=== PATIENT | female | born 1965 ===

== ENCOUNTER 2024-06-01 08:04 | Day surgery (SDC) | payer OTHER, BC ==
[2024-06-01] VITALS (8 sets, daily range): BP systolic 106–129; BP diastolic 63–75; PULSE 63–73; TEMP 98.3
[~2024-06-01] VITALS: Ht 165.2 cm; Wt 124.8 kg
[2024-06-01] MEDS ORDERED: methylPREDNISolone Sod Succ 125 MG/2 ML VIAL IV SCH (08:30)
[2024-06-01] MEDS ORDERED: 1/2 NS 1,000 ML IV SCH (08:30)
[2024-06-01] MEDS ORDERED: diphenhydrAMINE 50 MG/ML 1 ML VIAL IV SCH (08:30)
[2024-06-01] MEDS ORDERED: BENICAR40 MG PO (08:47)
[2024-06-01] MEDS ORDERED: PROAIR HFA0.09 MG/AC IH (08:47)
[2024-06-01] MEDS ORDERED: VALTREX 50500 MG/TAB PO (08:48)
[2024-06-01] MEDS ORDERED: K-DUR 10 MEQ T10 MEQ PO (08:48)
[2024-06-01] MEDS ORDERED: PRIL40 PO (08:49)
[2024-06-01] MEDS ORDERED: IPRATROPIUM BROM3 M1 IH (08:49)
[2024-06-01] MEDS ORDERED: LASIX 20MG TABL20 MG PO (08:49)
[2024-06-01] MEDS ORDERED: LANOXIN 0.25M0.25 MG PO (08:50)
[2024-06-01] MEDS ORDERED: BYSTOLIC5 MG PO (08:50)
[2024-06-01] MEDS ORDERED: LANOXIN 0.120.125 MG PO (08:51)
[2024-06-01] MEDS ORDERED: NITROSTAT0.4 MG/TAB SL (08:51)
[2024-06-01] MEDS ORDERED: XARELTO20 MG PO (08:52)
[2024-06-01] MEDS ORDERED: DULERA1 AR1 IH (08:52)
[2024-06-01] MEDS ORDERED: ZYRTEC 10MG10 MG PO (08:52)
[2024-06-01 08:54] LABS: HEMATOCRIT 38.1 % (37.0-47.0); HEMOGLOBIN 12.9 g/dl (12.5-16.0); MEAN CELL VOLUME 83 fl (80.0-100.0); MEAN CORPUSCULAR HEMOGLOBIN 28 pg (27-31); MEAN CORPUSCULAR HGB CONC 34 g/dl (33.0-37.0); MEAN PLATELET VOLUME 10.1 fl (7.4-10.4); PLATELET COUNT 237 K/mm3 (130-400); RED BLOOD COUNT 4.58 M/mm3 (4.10-5.30); REDCELL DISTRIBUTION WIDTH-CV 14.4 % (11.5-14.5)
[2024-06-01] MEDS ORDERED: NORCO 325 MG-51 TAB PO (08:58)
[2024-06-01 09:07] LABS: INR 1.1 (0.8-3.0)
[2024-06-01 09:09] LABS: PARTIAL THROMBOPLASTIN TIME 36.1 SECONDS (26.0-37.0)
[2024-06-01 09:15] LABS: CALCIUM 9.2 mg/dL (8.4-10.2); CREATININE, serum 0.89 mg/dL (0.57-1.11); POTASSIUM 4.1 mEq/L (3.5-4.5)
[2024-06-01] MEDS ORDERED: fentaNYL 50 MCG/ML 2 ML VIAL IV SCH (11:51)
[2024-06-01] MEDS ORDERED: Midazolam 2 MG/2 ML VIAL IV SCH (11:51)
[2024-06-01] MEDS ORDERED: Nitroglycerin 100 MCG/ML (Cath Lab) 10 ML VIAL IA SCH (11:53)
[2024-06-01] MEDS ORDERED: Verapamil 2.5 MG/ML 2 ML VIAL IA SCH (11:54)
[2024-06-01] MEDS ORDERED: Heparin 1,000 UNITS/ML 10 ML Multi-Dose VIAL IA SCH (11:56)
[2024-06-01] MEDS ORDERED: Heparin 1,000 UNITS/ML 10 ML Multi-Dose VIAL IV SCH (11:57)
[2024-06-01] MEDS ORDERED: Iohexol 350 - 100 ML VIAL INCOR ONE (11:58)
[2024-06-01] MEDS ORDERED: CEPHALEXIN500 M1 PO (12:05)
--- NOTE | 2024-06-01 12:30 | NUR ---
Indigo is transferred back to express unit after right and left heart caths and loop implant with LISETTE Ang. She is awake and alert, pwd with reg and unlabored respirations. cms intact to extremities. Dressing to rt groin clean and dry. TR band to rt wrist. Loop dressing clean and dry. BS report to Eber SAUCEDA. Please see merge document in paper chart for record of procedure.
--- NOTE | 2024-06-01 12:33 | NUR ---
Pt returned from [employer] post L/RHC and loop implant. Pt alert, oriented. C/o pain to rt forearm just below AC area extending across forearm and down 3 inches from AC, at radial access site, and numbess and pain to rt middle finger. Rt arm is soft to palpation, no specific areas of tenderness with palpation. Pt arrived with 13ml of air in TR band, 1ml removed with improved cap refill time and decrease in symptoms to middle finger. Dressings over loop implant site and rt groin venous access are clean, dry and intact. Pt aware of bedrest period. Ice chips provided. Pt denies desire for food/fluids at this time. Call light in reach. at bedside.
--- NOTE | 2024-06-01 15:04 | NUR ---
Pt was assisted up to restroom following bedrest period. Assist x1, gait steady once out of bed. Rt groin site remains soft to palpation. Dressing is clean, dry and intact to rt groin and loop insert site. Loop site care instructions reviewed as written on pt discharge packet. Air was removed from TR band in 2 ml increments, no bleeding or complication at site. Pt reported resolution of discomfort in rt arm once release of air from TR band was started. Radial access site dressed with folded gauze and bandaid. DC instructions reviewed with pt and , both express understanding. IV DC'd, site wrapped with coban. Pt assisted out to 's car by wheelchair.
== END 2024-06-01 15:04 | disposition home or self-care (01) ==
LOC: COL.CAR 08:04
PROVIDERS: Internal Medicine Cardiovascular Disease
DX: I48.0 Paroxysmal atrial fibrillation (principal)
CPT/HCPCS: C1764; C1769; C1894; J1200; J1644; J2250; J2919; J3010; Q9967